=== PATIENT | female | born 1995 | race Caucasian/White ===

== ENCOUNTER 2019-02-14 13:07 | Day surgery (SDC) | payer OTHER ==
[2019-02-14 14:10] VITALS: BP 133/79; TEMP 98.4; BMI 32.5
[2019-02-14] MEDS ORDERED: hydrALAZINE 20 MG/ML VIAL SLOW IVP PRN (14:54)
--- NOTE | 2019-02-14 14:57 | PDOC.FPROB ---
FMR OB H&P: HPI - History of Present Illness Chief Complaint: abdominal cramping Indentification: 24 y/o @ 27.2 WGA History of Present Illness: Presents for lower abdominal cramping that started at 0630. No associated symptoms. Endorses movement. Denies vaginal bleeding, d/c, LOF. Reports placenta previa and has been advised to abstain from sex or putting anything in vagina and pt reports compliance with this. Primary Care Physician: Yenni FMR OB H&P: Current - Care : 1 Para: 0 Gestational age: 27.2 Due date: 05/10/19 FMR OB H&P: History - Past Medical History PMH: None - OB History OB History: G1 - TIP MENDER History TIP MENDER History: Denies h/o abnormal paps or STI's - Surgical History Sx History: tonsillectomy, adenoidectomy, ear tubes, wisdom teeth - Social History Social History: Denies tobacco, EtOH, or drug use - Family History Family History: Dad - HTN FMR OB H&P: Medications - Current Home Medications: Medication Instructions Recorded Confirmed Type No Known 02/14/19 02/14/19 History Allergies/Adverse Reactions: Allergies Allergy/AdvReac Type Severity Reaction Status Date / Time No Known Allergies Allergy Unverified 02/14/19 14:59 FMR OB H&P: ROS - Review of Systems General: reports: weight/appetite/sleep changes (decreased appetite and po intake today). denies: fever/chills Eyes: denies: vision changes, double vision ENT: denies: nasal congestion, rhinorrhea, sore throat Cardiovascular: denies: chest pain, edema Respiratory: denies: cough, shortness of breath Gastrointestinal: reports: cramping. denies: nausea, vomiting, diarrhea Genitourinary (Female): denies: dysuria, hematuria, polyuria, vaginal discharge , vaginal bleeding, contractions Musculoskeletal: denies: pain, swelling Neurologic: denies: numbness, weakness Integumentary: denies: itching, lesions Breast: denies: lumps, bumps Endocrine: denies: cold intolerance, heat intolerance Hematologic/Lymphatic: denies: prolonged or excessive bleeding, enlarged lymph nodes FMR OB H&P: Vital Signs - Maternal Vital signs: Vital Signs - First Documented Temp Pulse Resp BP 98.4 F 85 16 133/79 02/14/19 14:02 02/14/19 14:02 02/14/19 14:02 02/14/19 14:02 - Heart Tones Baseline: 150 Variability: moderate Acceleration: present Deceleration: absent Category: category 1 [place] contractions every: 3 minutes FMR OB H&P: Physical Exam - Physical Exam General: NAD, awake, alert and oriented HEENT: EOMI, MMM, conjunctiva clear, grossly normal vision, grossly normal hearing Neck: supple, no LAD Heart: RRR, normal S1/S2, no murmurs/rubs/gallops, pulses present, no edema General: CTAB, no respiratory distress, good air movement, no rales/rhonchi, no wheezing Abdomen: soft, gravid, non-tender Neurological: no clonus, no focal deficit Skin: good tugor, capillary refill <2 seconds Lymphatic: no unusual bruising or bleeding, no purpura Psychiatric: intact recent and remote memory, good judgement and insight FMR OB H&P: A/P - Problem List (1) Abdominal cramping affecting Current Visit: Yes Status: Acute Code(s): O26.899 - OTH RELATED CONDITIONS, UNSPECIFIED TRIMESTER; R10.9 - UNSPECIFIED ABDOMINAL PAIN Comment : Will r/o PTL and infectious causes of cramping -FFN, cervical length -Cath UA, VP3 -PO hydrate (2) Placenta previa antepartum Current Visit: Yes Status: Acute Code(s): O44.00 - COMPLETE PLACENTA PREVIA NOS OR WITHOUT HEMOR, UNSP TRI Comment: Will avoid checking pt and will get US to evaluate location of placenta, avoid transvaginal (3) Current Visit: Yes Status: Acute Qualifiers: Weeks of gestation: 27 weeks Qualified Code(s): Z3A.27 - 27 weeks gestation of Comment: Monitor FHT Disposition: pending results Discussion: Date/Time: 02/14/19 2681 This H&P was discussed with Dr. Sanchez who agrees with the above documentation and plan. Signature: Sheila Story MD, PGY-3 Addendum - Attending - Attending Attestation Date/Time: 02/14/19 1293 I personally evaluated the patient and discussed the management with Dr. Story. I agree with the History, Examination, Assessment and Plan documented above.
[2019-02-14 16:03] LABS: Bacteria/HPF None Seen HPF (None Seen); Bilirubin Negative (Negative); Blood, Urine 3+ (Negative); Clarity Turbid (Clear); Glucose, Urine (Dipstick) Normal (Negative); Leukocyte Negative Leu/uL (Negative); Nitrite Negative (Negative); Protein, Urine (Dipstick) 50 mg/dL (Neg-Trace); RBC/HPF Greater than 50 HPF (0-3); Squamous Epithelial 0-3 HPF (0-3); Urobilinogen Normal mg/dL (Less than 2)
[2019-02-14 16:05] LABS: Urine Culture Reflex Yes Yes
[2019-02-14 16:14] LABS: FFN Internal QC Analyzer PASS (PASS); FFN Internal QC Cassette PASS (PASS); Fetal Fibronectin Negative (Negative)
--- NOTE | 2019-02-14 17:15 | ULT ---
EXAM: [facility] PROVIDED CLINICAL HISTORY: Cervical length and placental location COMPARISON: None FINDINGS: Limited sonographic interrogation demonstrates cervical length of 3.4 cm. The placenta is anteriorly located, without evidence for previa. CONOR is calculated as 13.6. The heart rate of 1 46 bpm is documented. A single intrauterine gestation in breech presentation is noted. IMPRESSION: As above.
== END 2019-02-14 17:40 | disposition home or self-care (01) ==
LOC: ERS 13:07 → L&D/OP 13:29
PROVIDERS: ATTEND Student in an Organized Health Care Education/Training Program
DX: O26.892 Other specified pregnancy related conditions, second trimester (principal); R10.9 Unspecified abdominal pain; O44.02 Complete placenta previa NOS or without hemorrhage, second trimester; Z3A.27 27 weeks gestation of pregnancy
CPT/HCPCS: 76815; 81001; 82731; 87086; 87480; 87510; 87660; 99283

== ENCOUNTER 2019-04-24 09:33 | Day surgery (SDC) | payer OTHER ==
[2019-04-24] MEDS ORDERED: hydrALAZINE 20 MG/ML VIAL SLOW IVP PRN (09:52)
[2019-04-24 10:14] LABS: #Basophils 0.1 thou/uL (0.0-0.2); #Eosinphils 0.1 thou/uL (0.0-0.7); #Lymphocytes 1.9 thou/uL (1.20-3.40); %Basophils 0.8 % (0.0-1.0); %Eosinophils 0.8 % (0.0-10.0); %Lymphocytes 18.5 % (21.0-51.0); %Neutrophils 69.9 % (42.0-75.0); Hemoglobin 11.7 g/dL (12.0-16.0); Mean Corpuscular HGB CONC 33.9 g/dL (32.0-36.0); Mean Corpuscular Hemoglobin 28.9 pg (27.0-31.0); Mean Corpuscular Volume 85.2 fL (78.0-98.0); Platelet Count 179 thou/uL (130-400); RBC Distribution Width 12.7 % (11.5-14.5); Red Blood Cell (RBC) Count 4.05 mill/uL (4.20-5.40); White Blood Cell (WBC) Count 10.1 thou/uL (4.8-10.8)
[2019-04-24 10:15] VITALS: BP 138/85; TEMP 98.3; BMI 36.8
[2019-04-24 10:32] LABS: ALT (SGPT) 9 U/L (8-55); AST (SGOT) 14 U/L (5-34); Albumin 3.6 g/dL (3.5-5.0); Alkaline Phosphatase 173 U/L (40-110); Anion Gap 11 mmol/L (10-20); BUN (Urea Nitrogen) 8 mg/dL (7.0-18.7); Bilirubin, Total 0.4 mg/dL (0.2-1.2); Calc. Creatinine Clearance 196 mL/min (70-130); Calcium 9.8 mg/dL (7.8-10.44); Carbon Dioxide 22 mmol/L (22-29); Chloride 108 mmol/L (98-107); Estimated GFR-MDRD Greater than 90; Globulin 3.8 g/dL (2.4-3.5); Glucose 81 mg/dL (70-105); Potassium 4.4 mmol/L (3.5-5.1); Protein, Total 7.4 g/dL (6.0-8.3); Sodium 137 mmol/L (136-145)
[2019-04-24 11:21] LABS: Creatinine, Urine 30.55 mg/dL (47-110); Protein, Urine Random Quant Less than 10 mg/dL (1-14)
--- NOTE | 2019-04-24 11:34 | PDOC.LDHP ---
Labor and Delivery H&P Chief complaint: other (BP workup) HPI: 24 y/o G1 at 37w5d sent from Dr. Hyman's clinic for elevated BPs. Denies VB, LOF, ctx, or other complaints. +FM. No HICKMAN, vision changes, or RUQ pain. ROS neg for HEENT, cv, pulm, gi, gu, neuro, psych, skin, musculoskeletal or constitutional symptoms other than mentioned above. OB History Details: First Current complications: none Past Medical History: None Current medications: pre- vitamins Previous surgical history: other (wisdom teeth, Tonsillectomy/adenoidectomy) Allergies/Adverse Reactions: Allergies Allergy/AdvReac Type Severity Reaction Status Date / Time No Known Allergies Allergy Unverified 04/24/19 10:15 Social history: none - Physical Exam Vital signs reviewed and normal: yes General: NAD, resting Lungs: nonlabored breathing Abdomen: gravid Extremeties: no edema (140s, mod variability, + accels, no decels) [place] contractions every: occasional - Assessment 24 y/o G1 at 37w4d with no e/o preeclampsia. Labs, urine wnl. status reassuring with reactive NST. - Plan -: D/c home with precautions. Advised to keep all appointments.
== END 2019-04-24 11:55 | disposition home or self-care (01) ==
LOC: L&D/OP 09:33
PROVIDERS: ATTEND Student in an Organized Health Care Education/Training Program
DX: O26.893 Other specified pregnancy related conditions, third trimester (principal); R03.0 Elevated blood-pressure reading, without diagnosis of hypertension; Z3A.37 37 weeks gestation of pregnancy
CPT/HCPCS: 36415; 80053; 82570; 84156; 85025; 99284

== ENCOUNTER 2019-05-08 09:38 | Inpatient (IN) | payer OTHER ==
[2019-05-08 10:18] VITALS: BMI 36.8
[2019-05-08] MEDS ORDERED: Lidocaine 1% (PF) 30 ML VIAL SC PRN (11:04)
[2019-05-08] MEDS ORDERED: HYDROcodone/Acetaminophen 5/325 mg Tablet PO PRN (11:04)
[2019-05-08] MEDS ORDERED: Misoprostol 200 MCG TAB PR PRN (11:04)
[2019-05-08] MEDS ORDERED: Butorphanol Tartrate 1 MG/ML VIAL SLOW IVP PRN (11:04)
[2019-05-08] MEDS ORDERED: Carboprost 250 MCG/ML AMP IM PRN (11:04)
[2019-05-08] MEDS ORDERED: Diphenoxylate HCl/Atropine Tablet PO PRN (11:04)
[2019-05-08] MEDS ORDERED: Methylergonovine 0.2 MG/ML VIAL IM PRN (11:04)
[2019-05-08] MEDS ORDERED: Ibuprofen 800 MG TAB PO PRN (11:04)
[2019-05-08] MEDS ORDERED: Acetaminophen 500 MG TAB PO PRN (11:04)
[2019-05-08] MEDS ORDERED: Promethazine HCl 25 MG/ML VIAL IM PRN ×2 (11:04→19:20)
[2019-05-08] MEDS ORDERED: Ondansetron PF 4 MG/2 ML Vial IVP PRN ×2 (11:04→19:20)
[2019-05-08] MEDS ORDERED: Penicillin G Potassium 5 MILL.UNITS in Sodium Chloride 0.9% 100 ML IVPB SCH (11:15)
[2019-05-08] MEDS ORDERED: NS w/ Oxytocin 10 units 500 ML IV SCH (11:15)
[2019-05-08] MEDS: Lactated Ringer's 1,000 ML IV SCH ×3 (11:46→18:23)
[2019-05-08 12:11] LABS: Hemoglobin 11.5 g/dL (12.0-16.0); Mean Corpuscular HGB CONC 33.9 g/dL (32.0-36.0); Mean Corpuscular Hemoglobin 29.3 pg (27.0-31.0); Mean Corpuscular Volume 86.5 fL (78.0-98.0); Mean Platelet Volume 11.6 fL (7.4-10.4); Platelet Count 161 thou/uL (130-400); Red Blood Cell (RBC) Count 3.94 mill/uL (4.20-5.40); White Blood Cell (WBC) Count 10.9 thou/uL (4.8-10.8)
[2019-05-08] MEDS: Misoprostol 100 MCG TAB VAG SCH (12:44)
[2019-05-08 12:50] LABS: HBSAg Index 0.43 S/CO (0-0.99); Hep B Surf Ag Non-Reactive S/CO (NonReactive)
[2019-05-08 12:51] LABS: Syphilis Antibody Nonreactive (Nonreactive); Syphilis Antibody Index 0.04 S/CO (<1.00 Non-Reactive)
[2019-05-08 13:29] LABS: ALT (SGPT) 11 U/L (8-55); AST (SGOT) 13 U/L (5-34); Albumin 3.7 g/dL (3.5-5.0); Alkaline Phosphatase 213 U/L (40-110); Anion Gap 15 mmol/L (10-20); BUN (Urea Nitrogen) 8 mg/dL (7.0-18.7); Bilirubin, Total 0.3 mg/dL (0.2-1.2); Calc. Creatinine Clearance 205 mL/min (70-130); Calcium 9.4 mg/dL (7.8-10.44); Carbon Dioxide 18 mmol/L (22-29); Chloride 109 mmol/L (98-107); Estimated GFR-MDRD Greater than 90; Globulin 3.3 g/dL (2.4-3.5); Glucose 72 mg/dL (70-105); Potassium 4.4 mmol/L (3.5-5.1); Sodium 138 mmol/L (136-145)
[2019-05-08] MEDS ORDERED: Lidocaine 2% MPF 10 ML AMP (For Epidural Use) ONE (13:47)
[2019-05-08] MEDS ORDERED: Bupivacaine/Epinephrine 0.25% 30 ML VIAL ONE (13:47)
--- NOTE | 2019-05-08 14:50 | PDOC.LDHP ---
Labor and Delivery H&P Chief complaint: other (elevated blood pressure) HPI: 24yo at 39w5d by LMP here for IOL 2/2 GHTN, BP mild-severe. No sx PIH. Some cramping. Current gestational age (weeks): 39 Due date: 05/10/19 Dating criteria: last menstrual period Grav: 1 Para: 0 Current complications: gestational hypertension Abnormal US findings: No Past Medical History: denies Current medications: pre-heladio vitamins Previous surgical history: none Allergies/Adverse Reactions: Allergies Allergy/AdvReac Type Severity Reaction Status Date / Time No Known Allergies Allergy Unverified 04/24/19 10:15 Social history: none - Physical Exam Abnormal vital signs: mild-severe range BP General: NAD Heart: RRR Lungs: CTAB Abdomen: gravid Extremeties: no edema FHT: category 1 [place] contractions every: 3min - Vaginal Exam cm dilated: 2 Effacement: 50% Station: -2 - OB Labs Blood type: A RH: positive Antibody Screen: negative HIV: negative RPR: negative HEPSAg: negative 1 hour GCT: negative GBS: negative Urine drug screen: negative Rubella: immune - Assessment L&D Assessment: medically indicated induction - Plan Plan: admit to L&D, cervical ripening, labor augmentation if indicated, GBS antibiotic prophylaxis, informed consent obtained, anesthesia consult for pain management -: PIH labs negative, BP mostly mild, no sx, will mag for severe features.
[2019-05-08 16:20] LABS: Bacteria/HPF None Seen HPF (None Seen); Bilirubin Negative (Negative); Blood, Urine Negative (Negative); Clarity Clear (Clear); Glucose, Urine (Dipstick) Normal (Negative); Leukocyte Negative Leu/uL (Negative); Nitrite Negative (Negative); Protein, Urine (Dipstick) 20 mg/dL (Neg-Trace); RBC/HPF 0-3 HPF (0-3); Squamous Epithelial 0-3 HPF (0-3); Urobilinogen Normal mg/dL (Less than 2); WBC/HPF 0-3 HPF (0-3)
[2019-05-08] MEDS: hydrALAZINE 20 MG/ML VIAL SLOW IVP PRN (16:30)
--- NOTE | 2019-05-08 17:17 | PDOC.LDPN ---
Labor & Delivery Progress Note - Subjective Subjective: painful contractions - Objective Vital signs reviewed and normal: yes Abnormal vital signs: severe range bp s/p hydralazine x 1 General: breathing through contractions Uterine fundus: non tender Dilation: 3 Effacement: 75% Station: -2 FHT: category 1 [place] contractions every: 2min AROM: clear fluid Plan: pitocin for augmentation, other (start PCN for GBS positive)
[2019-05-08] MEDS ORDERED: Fentanyl 4 mcg/Bup 0.1% Cadd 100 ML ONE (17:23)
[2019-05-08] MEDS ORDERED: diphenhydrAMINE 50 MG/ML VIAL IVP PRN (19:20)
[2019-05-08] MEDS ORDERED: ePHEDrine/0.9% NaCl/PF SYRINGE 50 mg/10 ml SLOW IVP PRN (19:20)
[2019-05-08] MEDS ORDERED: Naloxone HCl 0.4 mg/ml Vial IVP PRN ×2 (19:20)
[2019-05-08] MEDS ORDERED: Acetaminophen 325 MG TAB PO PRN (19:20)
[2019-05-08] MEDS ORDERED: Lactated Ringer's 500 ML IV PRN (19:20)
[2019-05-08] MEDS ORDERED: Fentanyl 4 mcg/Bupivacaine 0.1% Cassette 100 ML EPIDURAL SCH (19:30)
[2019-05-08] MEDS ORDERED: Communication Order-Pharmacy FS SCH (19:30)
[2019-05-08] MEDS: Penicillin G 2.5 MILL.units 2.5 MILL.UNITS in Premix Bag 1 BAG IVPB SCH ×2 (21:30→22:15)
[2019-05-09] MEDS ORDERED: Fentanyl 4 mcg/Bup 0.1% Cadd 100 ML ONE ×2 (00:45→07:31)
[2019-05-09] MEDS: Penicillin G 2.5 MILL.units 2.5 MILL.UNITS in Premix Bag 1 BAG IVPB SCH ×4 (01:30→17:07)
[2019-05-09] MEDS: Misoprostol 100 MCG TAB VAG SCH ×3 (01:46→17:07)
[2019-05-09 13:41] LABS: Actual Bicarbonate (HCO3a) 20.4 mEq/L (22-28); Base Excess (BEa) -7.1 mEq/L (-2.0 to +3.0)
[2019-05-09 13:42] LABS: Actual Bicarbonate (HCO3v) 20 mEq/L (22-28); Base Excess -6.4 mEq/L (-2.0 to +3.0)
--- NOTE | 2019-05-09 13:48 | PDOC.OPDEL ---
OB Operative/Delivery Note Delivery Dr/Surgeon: Yenni Assist: n/a Pre-Delivery Diagnosis: medically indicated induction (GHTN) Procedure/Post Delivery Dx: operative vaginal delivery (VE for maternal exhaustion) Weeks gestation: 39 Anesthesia: epidural - Findings A Sex: male - Additional Findings/Plan Placenta delivered: spontaneous Repaired Obstetrical Laceration: 1st degree Estimated blood loss: 400 Compilations/Other Findings: Pt had been pushing for 2 hours was unable to continue pushing at full strength and had more pushing to do. Counseled for VE. [place] pt had adequate pelvis and EFW 3500gm. Position of baby LOP, manual rotation had prev been attempted but was unsuccessful. FHT reassuring. Vacuum placed at flexion point, infant had posterior acynclitism, paramedian flexing. Rotation approx 45degree to DAVID at delivery of head. No dystocia. Successful extraction after 2 pulls and 7 total minutes of application time. Small possible cephalohematoma noted by Román , will monitor size and blood counts. Infant vigorous and to mom for skin to skin.
[2019-05-09] MEDS: NS / Oxytocin 40 units/1000ml 1,000 ML IV PRN ×2 (15:10→15:11)
[2019-05-09] MEDS ORDERED: hydrALAZINE 20 MG/ML VIAL ONE (15:19)
[2019-05-09] MEDS: hydrALAZINE 20 MG/ML VIAL SLOW IVP PRN (15:29)
[2019-05-09] MEDS ORDERED: diphenhydrAMINE 25 MG CAP PO PRN (15:55)
[2019-05-09] MEDS ORDERED: Promethazine HCl 25 MG/ML VIAL IM PRN (15:55)
[2019-05-09] MEDS ORDERED: Preparation H Ointment 28 GM TUBE PR PRN (15:55)
[2019-05-09] MEDS ORDERED: hydrALAZINE 20 MG/ML VIAL SLOW IVP PRN (15:55)
[2019-05-09] MEDS ORDERED: Benzocaine-Menthol 82.5 ML CAN TOP PRN (15:55)
[2019-05-09] MEDS ORDERED: Lanolin Ointment 7 GM TUBE TOP PRN (15:55)
[2019-05-09] MEDS ORDERED: Bisacodyl 10 MG SUPP PR PRN (15:55)
[2019-05-09] MEDS ORDERED: HYDROcodone/Acetaminophen 5/325 mg Tablet PO PRN ×2 (15:55)
[2019-05-09] MEDS ORDERED: NS / Oxytocin 40 units/1000ml 1,000 ML IV SCH (15:55)
[2019-05-09] MEDS ORDERED: Milk Of Magnesia 30 ML UDCUP PO PRN (15:55)
[2019-05-09] MEDS ORDERED: Ondansetron PF 4 MG/2 ML Vial IVP PRN (15:55)
[2019-05-09] MEDS: Lactated Ringer's 1,000 ML IV SCH (17:07)
[2019-05-09] MEDS: Ferrous Sulfate 325 MG TAB PO SCH (18:32)
[2019-05-09] MEDS ORDERED: Magnesium Sulfate 20 GM/WATER 500 ML BAG IVPB SCH (20:29)
[2019-05-09] MEDS ORDERED: Calcium Gluconate 4.6 MEQ in Sodium Chloride 0.9% 100 ML IVPB PRN (20:29)
[2019-05-09] MEDS ORDERED: NIFEdipine XL 30 MG TAB PO SCH (20:30)
[2019-05-09] MEDS ORDERED: Magnesium Sulfate 20 GM in Dextrose 5% in Water 460 ML IV SCH (20:45)
[2019-05-09] MEDS: Magnesium Sulfate 20 GM in Dextrose 5% in Water 460 ML IV SCH (20:58)
[2019-05-10] MEDS: Docusate Calcium (SURFAK) 240 MG CAP PO SCH ×3 (03:03→21:25)
[2019-05-10] MEDS: Ibuprofen 800 MG TAB PO SCH ×3 (03:03→15:42)
[2019-05-10] MEDS: Magnesium Sulfate 20 GM in Dextrose 5% in Water 460 ML IV SCH ×2 (05:09→15:42)
--- NOTE | 2019-05-10 07:29 | PDOC.PP ---
Post Progress Note Post Day #: 1 Subjective: Patient doing well. No significant overnight events. Patient started on Mg several hours after delivery due to severe range pressures. Patient induced for gHTN. Lochia less than period. Patient with general aches and pains from being in bed so long. PO intake tolerated: yes Flatus: yes Ambulation: yes Weight Weight 97.522 kg - Physical Examination General: NAD Cardiovascular: RRR Respiratory: non-labored breathing Abdominal: + bowel sounds, lochia (less than period), no distention, appropriately TTP Fundus firm & at: below umbilicus Skin: no rash Neurological: no gross focal deficits Psychiatric: A&Ox3, normal affect Result Diagrams: 05/08/19 11:46 05/08/19 11:46 Additional Labs: Post Labs Blood Type A POSITIVE 05/08/19 12:50 Hep Bs Antigen Non-Reactive S/CO (NonReactive) 05/08/19 11:46 (1) Term delivered Code(s): O80 - ENCOUNTER FOR FULL-TERM UNCOMPLICATED DELIVERY Status: Acute (2) Gestational hypertension Code(s): O13.9 - GESTATIONAL HTN W/O SIGNIFICANT PROTEINURIA, UNSP TRIMESTER Status: Acute - Assessment/Plan Routine PP care - Rh positive, rubella immune - Lochia minimal - GBS neg gHTN with severe range pressures - Started on Mg around 21:00 - BP's have been well controlled ranging from 130's-140's/70's-80's. - Ideally, patient will stay on Mg for 24 hour PP period - Continue to monitor BP closely - No signs of Mg toxicity; good urine output Dispo: Stable. D/c Mg 24h PP and transfer to floor if BP's well controlled.
[2019-05-10] MEDS ORDERED: Adacel (T-DAP) 0.5 ML SYRINGE IM ONE (09:00)
[2019-05-10] MEDS ORDERED: Acetaminophen 500 MG TAB PO PRN (09:37)
[2019-05-10] MEDS: NIFEdipine XL 30 MG TAB PO SCH (09:38)
[2019-05-10] MEDS: Ferrous Sulfate 325 MG TAB PO SCH (18:02)
--- NOTE | 2019-05-10 19:58 | PDOC.EVN ---
Event Note - Event Note Event Note: pt doing well w normal bp and uop. will dc mg and tranfer to pp unit
[2019-05-11] MEDS: Ibuprofen 800 MG TAB PO SCH ×2 (06:04→06:08)
[2019-05-11] MEDS: Docusate Calcium (SURFAK) 240 MG CAP PO SCH (09:08)
[2019-05-11] MEDS: NIFEdipine XL 30 MG TAB PO SCH (09:08)
[2019-05-11 12:31] VITALS: BP 140/79; TEMP 98.3
--- NOTE | 2019-05-11 13:17 | PDOC.PP ---
Post Progress Note Post Day #: 2 Subjective: no sx PIH PO intake tolerated: yes Flatus: yes Ambulation: yes Vital Signs (12 hours) Temp Pulse Resp BP BP Pulse Ox 05/11/19 12:10 98.3 F 88 20 140/79 05/11/19 09:08 81 134/81 05/11/19 08:18 98.7 F 81 20 134/81 97 05/11/19 07:50 97 05/11/19 04:00 98.3 F 88 17 135/82 Weight Weight 215 lb - Physical Examination General: NAD Respiratory: non-labored breathing Abdominal: no distention, appropriately TTP Fundus firm & at: umb Extremities: negative homans (B) Skin: no rash Neurological: no gross focal deficits Psychiatric: normal affect Result Diagrams: 05/08/19 11:46 05/08/19 11:46 Additional Labs: Post Labs Blood Type A POSITIVE 05/08/19 12:50 Hep Bs Antigen Non-Reactive S/CO (NonReactive) 05/08/19 11:46 - Assessment/Plan PPD2 s/p VAVD at 39w VSSAF PIH- BP mostly nl on procardia XL, s/p mag, no sx PIH Doing well Rh pos RImm DC home FU 6w
== END 2019-05-11 15:28 | disposition home or self-care (01) | DRG 807 ==
LOC: L&D/OP 09:38 → EDSTATUS 09:41 → L&D 09:41 → 3SW 05-09 17:08 → L&D 05-10 01:36 → 3SW 05-10 22:05
PROVIDERS: ADMIT Student in an Organized Health Care Education/Training Program; ATTEND Student in an Organized Health Care Education/Training Program
PROC: 10907ZC Drainage of Amniotic Fluid, Therapeutic from Products of Conception, Via Natural or Artificial Opening (ICD-10-PCS; 2019-05-08)
PROC: 3E033VJ Introduction of Other Hormone into Peripheral Vein, Percutaneous Approach (ICD-10-PCS; 2019-05-08)
PROC: 10D07Z6 Extraction of Products of Conception, Vacuum, Via Natural or Artificial Opening (ICD-10-PCS; principal; 2019-05-09)
PROC: 0HQ9XZZ Repair Perineum Skin, External Approach (ICD-10-PCS; 2019-05-09)
DX: O13.4 Gestational [pregnancy-induced] hypertension without significant proteinuria, complicating childbirth (principal); Z37.0 Single live birth; Z3A.39 39 weeks gestation of pregnancy; O75.81 Maternal exhaustion complicating labor and delivery; O70.0 First degree perineal laceration during delivery
CPT/HCPCS: 36415; 51702; 80053; 81001; 82805; 85027; 86780; 86850; 86900; 86901; 87340; J0360; J0595; J2001; J2540; J2590; J3475; J3490; J7070